=== PATIENT | female | born 1995 | race Caucasian/White ===

== ENCOUNTER 2025-07-23 13:28 | Observation (INO) | payer OTHER ==
[2025-07-23] MEDS ORDERED: VALIUM 10 MG/2 ML SYRINGE ONE (13:40)
--- NOTE | 2025-07-23 13:40 | ERPHSYRPT ---
- History of Present Illness Time Seen by Provider: 07/23/25 13:40 Source: patient, EMS Exam Limitations: clinical condition Physician History: This is a 30-year-old female who presents to the emergency department by the energy scheduler service secondary to possible seizure activity and complaint of generalized body muscle spasms with right arm being drawn up. This has never happened to her before. Patient lives in [place] and has been living in this area in [place] area with family for the last week. He has been visiting. She has been taking all her medications. Patient states that she did not hit her head. No other individuals have similar symptoms than her. She has no history of sickle cell anemia. She has no known cardiac history. She does have a history of seizures and is on diazepam for this. Patient does state that she has history of asthma as well as hypertension. Patient also states she has severe anxiety issues. Patient denies any recent condition, episode or experience that would have brought on her severe anxiety. Patient states she cannot extend her right elbow. This is new. Timing/Duration: today Severity: moderate Character of Deficits: other (Generalized muscle spasms) Baseline/Normal Cognition: alert oriented x 3 Current Cognition: alert oriented x 3 Associated Symptoms: headache (She describes as a generalized numbness) Allergies/Adverse Reactions: Latex, Natural Rubber Allergy (Verified 07/23/25 13:36) Sulfa (Sulfonamide Antibiotics) Allergy (Verified 07/23/25 13:36) Home Medications: Budesonide/Formoterol Fumarate [Budesonide-Formoterol 160-4.5] 2 puff IH DAILY 07/23/25 [History] Diazepam [Valium] 2 mg PO DAILY PRN 07/23/25 [History] Fluoxetine HCl 60 mg PO DAILY 07/23/25 [History] Losartan Potassium 50 mg [Cozaar 50 MG] 100 mg PO DAILY 07/23/25 [History] PANTOPRAZOLE 40 mg Tablet [Protonix 40MG Tablet] 40 mg PO DAILY 07/23/25 [History] Travel Risk - International Travel Have you traveled outside of the country in past 3 weeks: No - Emerging Infectious Disease Are you exhibiting symptoms associated with any current EIDs: No - Review of Systems Constitutional: No Symptoms Eyes: No Symptoms Ears, Nose, & Throat: No Symptoms Respiratory: No Symptoms Cardiac: No Symptoms Abdominal/Gastrointestinal: No Symptoms Genitourinary Symptoms: No Symptoms Musculoskeletal: Other (Right upper extremity flexed at the elbow. Patient has generalized muscle spasms) Skin: No Symptoms Neurological: Headache (Describes as generalized numbness) Psychological: No Symptoms Endocrine: No Symptoms Hematologic/Lymphatic: No Symptoms Immunological/Allergic: No Symptoms All Other Systems: Reviewed and Negative - Past Medical History Pertinent Past Medical History: Yes Neurological History: Seizures Cardiac History: Hypertension Psycho-Social History: Anxiety - Past Surgical History Past Surgical History: Yes Female Surgical History: Section - Female History Hx Now: No - Nursing Vital Signs Nursing Vital Signs: Initial Vital Signs O2 Sat by Pulse Oximetry 96 07/23/25 13:37 Pain Scale Pain Intensity 4 - Rodeo Coma Scale Best Eye Response (Apple): (4) open spontaneously Best Verbal Response (Rodeo): (5) oriented Best Motor Response (Apple): (6) obeys commands Apple Total: 15 - Physical Exam General Appearance: moderate distress, alert, anxiety Eye Exam: bilateral eye: normal inspection, PERRL, EOMI Ears, Nose, Throat Exam: normal ENT inspection, moist mucous membranes Neck Exam: normal inspection, non-tender, supple, full range of motion Respiratory: normal breath sounds, lungs clear, airway intact, No chest tenderness, No respiratory distress Cardiovascular: regular rate/rhythm, normal heart sounds, normal peripheral pulses Gastrointestinal: soft, normal bowel sounds, No tenderness Pelvic Exam: not done Rectal Exam: not done Back Exam: normal inspection, normal range of motion, No CVA tenderness, No vertebral tenderness Extremity Exam: pelvis stable, other (Patient has generalized muscular spasms. She is unable to extend her right elbow) Mental Status: alert, oriented x 3, cooperative outpatient case manager Exam: normal hearing, normal speech, PERRL, tongue midline, No facial droop, No facial paresthesias Skin Exam: normal color, warm, dry SpO2 Interpretation: normal SpO2: 98 O2 Delivery: Room Air - Course Nursing assessment & vital signs reviewed: Yes EKG Interpreted by Me: RATE (93), A-fib, NORMAL AXIS, prolonged QT interval, NORMAL QRS, Other Ordered Tests: Active Orders 24 hr Category Date Time Status Personalization Specialist STAT Care 07/23/25 13:38 Active EKG-ER Only STAT Care 07/23/25 13:37 Active EKG-ER Only STAT Care 07/23/25 17:24 Active IV Insertion STAT Care 07/23/25 13:37 Active NPO (ED) STAT Care 07/23/25 13:37 Active Pulse Oximetry (ED) STAT Care 07/23/25 13:37 Active Telemetry q4h Care 07/23/25 19:00 Active HEAD WITHOUT CONTRAST [CT] Stat Exams 07/23/25 13:37 Completed BMP Stat Lab 07/23/25 17:25 Completed CBC W DIFF Stat Lab 07/23/25 13:43 Completed CK-Creatinine Phosphokinase Stat Lab 07/23/25 14:20 Completed CMP Stat Lab 07/23/25 13:43 Completed CULTURE,URINE Stat Lab 07/23/25 13:37 Received MAG [MAGNESIUM] Stat Lab 07/23/25 14:20 Completed MAG [MAGNESIUM] Stat Lab 07/23/25 17:25 Completed PHOSPHOROUS Stat Lab 07/23/25 17:25 Completed TROPONIN Q4H Lab 07/23/25 13:43 Completed TROPONIN Q4H Lab 07/23/25 17:25 Completed UA W/RFX UR CULTURE Stat Lab 07/23/25 13:37 Completed Urine Triage Profile Stat Lab 07/23/25 13:58 Completed Medication Summary Generic Name Dose Route Start Last Admin Trade Name Freq PRN Reason Stop Dose Admin Potassium Chloride 20 meq in 100 mls @ 50 mls/hr 07/23/25 19:00 07/23/25 19:33 Potassium Chloride 20 Meq In Water 100ml IV 07/23/25 20:59 50 mls/hr STAT ONE Administration Sodium Chloride 1,000 mls @ 500 mls/hr 07/23/25 19:30 07/23/25 19:33 Sodium Chloride 0.9% 1000 Ml IV 08/22/25 19:29 500 mls/hr .Q2H YUNG Administration Discontinued Medications Generic Name Dose Route Start Last Admin Trade Name Freq PRN Reason Stop Dose Admin Calcium Gluconate 1,000 mg 07/23/25 17:27 07/23/25 17:35 Calcium Gluconate 1000 Mg/10 Ml Vial IV 07/23/25 17:28 1,000 mg STAT ONE Administration Calcium Gluconate Confirm 07/23/25 17:34 Calcium Gluconate 1000 Mg/10 Ml Vial Administered 07/23/25 17:35 Dose 1,000 mg IV .STK-MED ONE Diazepam 10 mg 07/23/25 13:39 07/23/25 13:41 Diazepam 10 Mg/2 Ml Disp.Syringe IV 07/23/25 13:40 10 mg STAT ONE Administration Diazepam Confirm 07/23/25 13:40 Diazepam 10 Mg/2 Ml Disp.Syringe Administered 07/23/25 13:41 Dose 10 mg .ROUTE .STK-MED ONE Droperidol 0.625 mg 07/23/25 15:57 07/23/25 16:21 Droperidol 5 Mg/2 Ml Vial IV 07/23/25 15:58 0.625 mg STAT ONE Administration Droperidol Confirm 07/23/25 16:15 Droperidol 5 Mg/2 Ml Vial Administered 07/23/25 16:16 Dose 5 mg .ROUTE .STK-MED ONE Sodium Chloride 1,000 mls @ 999 mls/hr 07/23/25 14:44 07/23/25 16:25 Sodium Chloride 0.9% 1000 Ml IV 07/23/25 15:44 Infused .Q1H1M STA Infusion Magnesium Sulfate/Water 2 gm in 50 mls @ 100 mls/hr 07/23/25 14:44 07/23/25 16:58 Magnesium Sulf 2 G/50 Ml Bag IV 07/23/25 15:13 Infused ONCE ONE Infusion Magnesium Sulfate/Water Confirm 07/23/25 14:46 Magnesium Sulf 2 G/50 Ml Bag Administered 07/23/25 14:47 Dose 2 gm in 50 mls @ ud IV .STK-MED ONE Sodium Chloride Confirm 07/23/25 14:46 Sodium Chloride 0.9% 1000 Ml Administered 07/23/25 14:47 Dose 1,000 mls @ ud .ROUTE .STK-MED ONE Magnesium Sulfate/Dextrose 100 mls @ 200 mls/hr 07/23/25 15:43 07/23/25 16:27 Magnesium 1 Gm / 100 Ml D5w IV 07/23/25 16:12 Infused STAT ONE Infusion Magnesium Sulfate/Dextrose Confirm 07/23/25 15:51 Magnesium 1 Gm / 100 Ml D5w Administered 07/23/25 15:52 Dose 100 mls @ ud IV .STK-MED ONE Sodium Chloride Confirm 07/23/25 16:09 Sodium Chloride 0.9% 500 Ml Administered 07/23/25 16:10 Dose 500 mls @ ud IV .STK-MED ONE Sodium Chloride 500 mls @ 500 mls/hr 07/23/25 17:03 07/23/25 18:07 Sodium Chloride 0.9% 500 Ml IV 07/23/25 18:02 Infused .Q1H ONE Infusion Sodium Chloride Confirm 07/23/25 17:07 Sodium Chloride 0.9% 500 Ml Administered 07/23/25 17:08 Dose 500 mls @ ud IV .STK-MED ONE Potassium Chloride Confirm 07/23/25 19:23 Potassium Chloride 20 Meq In Water 100ml Administered 07/23/25 19:24 Dose 100 mls @ ud IV .STK-MED ONE Lorazepam 1 mg 07/23/25 15:57 07/23/25 16:20 Lorazepam 2 Mg/1 Ml 2 Mg Vial IV 07/23/25 15:58 1 mg STAT ONE Administration Morphine Sulfate 4 mg 07/23/25 13:49 07/23/25 13:54 Morphine Sulfate 4 Mg/Ml Injection IV 07/23/25 13:50 4 mg STAT ONE Administration Morphine Sulfate Confirm 07/23/25 13:52 Morphine Sulfate 4 Mg/Ml Injection Administered 07/23/25 13:53 Dose 4 mg .ROUTE .STK-MED ONE Ondansetron HCl 4 mg 07/23/25 13:49 07/23/25 13:54 Ondansetron Hcl 4 Mg/2 Ml Vial IV 07/23/25 13:50 4 mg STAT ONE Administration Ondansetron HCl Confirm 07/23/25 13:52 Ondansetron Hcl 4 Mg/2 Ml Vial Administered 07/23/25 13:53 Dose 4 mg .ROUTE .STK-MED ONE Potassium Chloride 20 meq 07/23/25 17:28 07/23/25 17:35 Potassium Chloride Tab 10 Meq Tab PO 07/23/25 17:29 20 meq STAT ONE Administration Potassium Chloride Confirm 07/23/25 17:34 Potassium Chloride Tab 10 Meq Tab Administered 07/23/25 17:35 Dose 20 meq .ROUTE .STK-MED ONE Lab/Rad Data: Laboratory Result Diagrams 07/23/25 13:43 07/23/25 17:25 Laboratory Results 07/23/25 07/23/25 07/23/25 Range/Units 17:25 17:25 17:25 WBC (3.98-10.04) x10^3/uL RBC (3.93-5.22) x10^6/uL Hgb (11.2-15.7) g/dL Hct (34.1-44.9) % MCV (79.4-94.8) fL MCH (25.6-32.2) pg MCHC (32.2-35.5) g/dL RDW (11.7-14.4) % Plt Count (182-369) x10^3/uL MPV (9.4-12.3) fL Gran % (34.0-71.1) % Immature Gran % (Auto) (0.001-0.429) % Nucleat RBC Rel Count (0.00-0.2) % Eos # (Auto) (0.04-0.36) x10^3/uL Immature Gran # (Auto) (0.001-0.031) x10^3u/L Absolute Lymphs (auto) (1.18-3.74) x10^3/uL Absolute Monos (auto) (0.24-0.86) x10^3/uL Absolute Nucleated RBC (0.00-0.012) x10^3u/L Lymphocytes % (19.3-51.7) % Monocytes % (4.7-12.5) % Eosinophils % (0.7-5.8) % Basophils % (0.1-1.2) % Absolute Granulocytes (1.56-6.13) x10^3/uL Basophils # (0.01-0.08) x10^3/uL Sodium 139 (135-145) mmol/L Potassium 3.0 L* (3.5-5.1) mmol/L Chloride 105 (98-107) mmol/L Carbon Dioxide 28 (22-30) mmol/L Anion Gap 9.3 (5-15) MEQ/L BUN 8 (7-17) mg/dL Creatinine 0.64 (0.52-1.04) mg/dL Estimated GFR 121.9 ML/MIN Glucose 81 (74-106) mg/dL Calcium 7.5 L (8.4-10.2) mg/dL Phosphorus 3.5 (2.5-4.5) mg/dL Magnesium 2.0 (1.6-2.3) mg/dL Total Bilirubin (0.2-1.3) mg/dL AST (14-36) U/L ALT (0-35) U/L Alkaline Phosphatase (38-126) U/L Creatine Kinase (30-135) U/L Troponin I < 0.012 (0.000-0.033) ng/mL Serum Total Protein (6.3-8.2) g/dL Albumin (3.5-5.0) g/dL Urine Color (Yellow) Urine Appearance (Clear) Urine pH (4.6-8.0) Ur Specific Marshall (1.005-1.030) Urine Protein (Negative) Urine Glucose (UA) (Negative) mg/dL Urine Ketones (Negative) Urine Blood (Negative) Urine Nitrite (Negative) Urine Bilirubin (Negative) Urine Urobilinogen (0.2) mg/dL Ur Leukocyte Esterase (Negative) U Hyaline Cast (Auto) (0-2) /LPF Urine Microscopic RBC (0-5) /HPF Urine Microscopic WBC (0-5) /HPF Ur Epithelial Cells (None Seen) /HPF Urine Bacteria (None Seen) /HPF Urine Culture Reflexed (NO) Urine Opiates Level (NEGATIVE) Ur Methadone (NEGATIVE) Urine Barbiturates (NEGATIVE) Ur Phencyclidine (PCP) (NEGATIVE) Urine Amphetamine (NEGATIVE) U Benzodiazepine Level (NEGATIVE) Urine Cocaine (NEGATIVE) Urine Marijuana (THC) (NEGATIVE) 07/23/25 07/23/25 07/23/25 Range/Units 14:20 14:20 13:58 WBC (3.98-10.04) x10^3/uL RBC (3.93-5.22) x10^6/uL Hgb (11.2-15.7) g/dL Hct (34.1-44.9) % MCV (79.4-94.8) fL MCH (25.6-32.2) pg MCHC (32.2-35.5) g/dL RDW (11.7-14.4) % Plt Count (182-369) x10^3/uL MPV (9.4-12.3) fL Gran % (34.0-71.1) % Immature Gran % (Auto) (0.001-0.429) % Nucleat RBC Rel Count (0.00-0.2) % Eos # (Auto) (0.04-0.36) x10^3/uL Immature Gran # (Auto) (0.001-0.031) x10^3u/L Absolute Lymphs (auto) (1.18-3.74) x10^3/uL Absolute Monos (auto) (0.24-0.86) x10^3/uL Absolute Nucleated RBC (0.00-0.012) x10^3u/L Lymphocytes % (19.3-51.7) % Monocytes % (4.7-12.5) % Eosinophils % (0.7-5.8) % Basophils % (0.1-1.2) % Absolute Granulocytes (1.56-6.13) x10^3/uL Basophils # (0.01-0.08) x10^3/uL Sodium (135-145) mmol/L Potassium (3.5-5.1) mmol/L Chloride (98-107) mmol/L Carbon Dioxide (22-30) mmol/L Anion Gap (5-15) MEQ/L BUN (7-17) mg/dL Creatinine (0.52-1.04) mg/dL Estimated GFR ML/MIN Glucose (74-106) mg/dL Calcium (8.4-10.2) mg/dL Phosphorus (2.5-4.5) mg/dL Magnesium 0.8 L* (1.6-2.3) mg/dL Total Bilirubin (0.2-1.3) mg/dL AST (14-36) U/L ALT (0-35) U/L Alkaline Phosphatase (38-126) U/L Creatine Kinase 108 (30-135) U/L Troponin I (0.000-0.033) ng/mL Serum Total Protein (6.3-8.2) g/dL Albumin (3.5-5.0) g/dL Urine Color (Yellow) Urine Appearance (Clear) Urine pH (4.6-8.0) Ur Specific Marshall (1.005-1.030) Urine Protein (Negative) Urine Glucose (UA) (Negative) mg/dL Urine Ketones (Negative) Urine Blood (Negative) Urine Nitrite (Negative) Urine Bilirubin (Negative) Urine Urobilinogen (0.2) mg/dL Ur Leukocyte Esterase (Negative) U Hyaline Cast (Auto) (0-2) /LPF Urine Microscopic RBC (0-5) /HPF Urine Microscopic WBC (0-5) /HPF Ur Epithelial Cells (None Seen) /HPF Urine Bacteria (None Seen) /HPF Urine Culture Reflexed (NO) Urine Opiates Level POSITIVE A (NEGATIVE) Ur Methadone NEGATIVE (NEGATIVE) Urine Barbiturates NEGATIVE (NEGATIVE) Ur Phencyclidine (PCP) NEGATIVE (NEGATIVE) Urine Amphetamine NEGATIVE (NEGATIVE) U Benzodiazepine Level POSITIVE A (NEGATIVE) Urine Cocaine NEGATIVE (NEGATIVE) Urine Marijuana (THC) POSITIVE A (NEGATIVE) 07/23/25 07/23/25 07/23/25 Range/Units 13:43 13:43 13:43 WBC 6.8 (3.98-10.04) x10^3/uL RBC 3.22 L (3.93-5.22) x10^6/uL Hgb 11.0 L (11.2-15.7) g/dL Hct 32.7 L (34.1-44.9) % MCV 101.6 H (79.4-94.8) fL MCH 34.2 H (25.6-32.2) pg MCHC 33.6 (32.2-35.5) g/dL RDW 17.9 H (11.7-14.4) % Plt Count 247 (182-369) x10^3/uL MPV 9.2 L (9.4-12.3) fL Gran % 62.2 (34.0-71.1) % Immature Gran % (Auto) 0.4 (0.001-0.429) % Nucleat RBC Rel Count 0.0 (0.00-0.2) % Eos # (Auto) 0.01 L (0.04-0.36) x10^3/uL Immature Gran # (Auto) 0.03 (0.001-0.031) x10^3u/L Absolute Lymphs (auto) 1.64 (1.18-3.74) x10^3/uL Absolute Monos (auto) 0.84 (0.24-0.86) x10^3/uL Absolute Nucleated RBC 0.00 (0.00-0.012) x10^3u/L Lymphocytes % 24.2 (19.3-51.7) % Monocytes % 12.4 (4.7-12.5) % Eosinophils % 0.1 L (0.7-5.8) % Basophils % 0.7 (0.1-1.2) % Absolute Granulocytes 4.22 (1.56-6.13) x10^3/uL Basophils # 0.05 (0.01-0.08) x10^3/uL Sodium 138 (135-145) mmol/L Potassium 3.6 (3.5-5.1) mmol/L Chloride 104 (98-107) mmol/L Carbon Dioxide 23 (22-30) mmol/L Anion Gap 14.2 (5-15) MEQ/L BUN 9 (7-17) mg/dL Creatinine 0.62 (0.52-1.04) mg/dL Estimated GFR 122.8 ML/MIN Glucose 90 (74-106) mg/dL Calcium 7.7 L (8.4-10.2) mg/dL Phosphorus (2.5-4.5) mg/dL Magnesium (1.6-2.3) mg/dL Total Bilirubin 1.30 (0.2-1.3) mg/dL AST 101 H (14-36) U/L ALT 33 (0-35) U/L Alkaline Phosphatase 73 (38-126) U/L Creatine Kinase (30-135) U/L Troponin I < 0.012 (0.000-0.033) ng/mL Serum Total Protein 6.8 (6.3-8.2) g/dL Albumin 4.0 (3.5-5.0) g/dL Urine Color (Yellow) Urine Appearance (Clear) Urine pH (4.6-8.0) Ur Specific Marshall (1.005-1.030) Urine Protein (Negative) Urine Glucose (UA) (Negative) mg/dL Urine Ketones (Negative) Urine Blood (Negative) Urine Nitrite (Negative) Urine Bilirubin (Negative) Urine Urobilinogen (0.2) mg/dL Ur Leukocyte Esterase (Negative) U Hyaline Cast (Auto) (0-2) /LPF Urine Microscopic RBC (0-5) /HPF Urine Microscopic WBC (0-5) /HPF Ur Epithelial Cells (None Seen) /HPF Urine Bacteria (None Seen) /HPF Urine Culture Reflexed (NO) Urine Opiates Level (NEGATIVE) Ur Methadone (NEGATIVE) Urine Barbiturates (NEGATIVE) Ur Phencyclidine (PCP) (NEGATIVE) Urine Amphetamine (NEGATIVE) U Benzodiazepine Level (NEGATIVE) Urine Cocaine (NEGATIVE) Urine Marijuana (THC) (NEGATIVE) 07/23/25 Range/Units 13:37 WBC (3.98-10.04) x10^3/uL RBC (3.93-5.22) x10^6/uL Hgb (11.2-15.7) g/dL Hct (34.1-44.9) % MCV (79.4-94.8) fL MCH (25.6-32.2) pg MCHC (32.2-35.5) g/dL RDW (11.7-14.4) % Plt Count (182-369) x10^3/uL MPV (9.4-12.3) fL Gran % (34.0-71.1) % Immature Gran % (Auto) (0.001-0.429) % Nucleat RBC Rel Count (0.00-0.2) % Eos # (Auto) (0.04-0.36) x10^3/uL Immature Gran # (Auto) (0.001-0.031) x10^3u/L Absolute Lymphs (auto) (1.18-3.74) x10^3/uL Absolute Monos (auto) (0.24-0.86) x10^3/uL Absolute Nucleated RBC (0.00-0.012) x10^3u/L Lymphocytes % (19.3-51.7) % Monocytes % (4.7-12.5) % Eosinophils % (0.7-5.8) % Basophils % (0.1-1.2) % Absolute Granulocytes (1.56-6.13) x10^3/uL Basophils # (0.01-0.08) x10^3/uL Sodium (135-145) mmol/L Potassium (3.5-5.1) mmol/L Chloride (98-107) mmol/L Carbon Dioxide (22-30) mmol/L Anion Gap (5-15) MEQ/L BUN (7-17) mg/dL Creatinine (0.52-1.04) mg/dL Estimated GFR ML/MIN Glucose (74-106) mg/dL Calcium (8.4-10.2) mg/dL Phosphorus (2.5-4.5) mg/dL Magnesium (1.6-2.3) mg/dL Total Bilirubin (0.2-1.3) mg/dL AST (14-36) U/L ALT (0-35) U/L Alkaline Phosphatase (38-126) U/L Creatine Kinase (30-135) U/L Troponin I (0.000-0.033) ng/mL Serum Total Protein (6.3-8.2) g/dL Albumin (3.5-5.0) g/dL Urine Color Yellow (Yellow) Urine Appearance Clear (Clear) Urine pH 7.5 (4.6-8.0) Ur Specific Marshall 1.015 (1.005-1.030) Urine Protein Negative (Negative) Urine Glucose (UA) Negative (Negative) mg/dL Urine Ketones Trace A (Negative) Urine Blood Negative (Negative) Urine Nitrite Negative (Negative) Urine Bilirubin Negative (Negative) Urine Urobilinogen 1.0 A (0.2) mg/dL Ur Leukocyte Esterase Negative (Negative) U Hyaline Cast (Auto) NONE SEEN (0-2) /LPF Urine Microscopic RBC 0-2 (0-5) /HPF Urine Microscopic WBC 0-2 (0-5) /HPF Ur Epithelial Cells None Seen (None Seen) /HPF Urine Bacteria None Seen (None Seen) /HPF Urine Culture Reflexed NO (NO) Urine Opiates Level (NEGATIVE) Ur Methadone (NEGATIVE) Urine Barbiturates (NEGATIVE) Ur Phencyclidine (PCP) (NEGATIVE) Urine Amphetamine (NEGATIVE) U Benzodiazepine Level (NEGATIVE) Urine Cocaine (NEGATIVE) Urine Marijuana (THC) (NEGATIVE) - Progress Progress: improved, re-examined Progress Note: 07/23/25 13:57 My medical decision making and the assignment of moderate to high complexity of this patient's medical issue today is based on review of the patient's past medical history, review the patient's medication list, review the patient drug allergy list, history of present illness and physical findings on examination. The workup in this patient includes placement of intravenous line, infusion of 10 mg intravenous Valium, 4 mg intravenous morphine, 4 mg of intravenous Zofran, CBC, CMP, magnesium level, twelve-lead EKG, urine drug screen, urinalysis and CT scan of the head without contrast Differential diagnosis includes but is not limited to acute intracranial abnormality, severe anxiety/panic attack, electrolyte abnormalities, dehydration, urinary tract infection, illicit drug use 07/23/25 14:[address] scan of the head without contrast was interpreted by the radiologist. I reviewed the impression. The impression states normal CT scan of the head without contrast. The patient has a significantly low magnesium level. Otherwise, the remainder of the other labs that have resulted do not show any acute, emergent findings. We are waiting to obtain the urine specimen in order to run a urinalysis and urine drug triage. We started intravenous fluids and intravenous magnesium. Soon after, she states that her symptoms are improving. 07/23/25 18:49 We repeated the patient's laboratory data results. Patient's 2 troponin levels are normal. Patient's repeat potassium level was 3.0 (down from 3.6), the repeat magnesium level is now 2.0. The calcium level was 7.7 and the repeat level was 7.5. They phosphorus level is 3.5 and normal. The first twelve-lead EKG the computer read the QTc is 503 and the pattern was atrial fibrillation. However I think the findings are artifact because the patient was shaking so much. The second (repeat) twelve-lead EKG I interpreted as well. It was performed on 07/23/2025 at 1729. There is persistent prolonged QT interval with a QTc reported by the computer on the EKG is 628. This was puzzling. I consulted Dr. Faustin the manager summer on-call at this time. The patient has no chest pain. And I reviewed the patient history, presenting complaint and the results of the laboratory workup. The manager summer states that the QT interval is less than 500. He says it is slightly prolonged on both twelve-lead EKGs but 1 measured 482 and the other 486. He states that there is a U wave present on the repeat twelve-lead EKG artificially increasing the QTc. This is secondary to the electrolyte abnormalities the patient is experiencing. We agree that we will place this patient in the hospital in observation on telemetry and have the hospitalist correct the electrolytes. Clinically, the patient states she is feeling much better. 07/23/25 20:[address] Pham, the telehospitalist on at this time. I reviewed the patient history, presenting complaint and workup results. In addition I discussed with him the clinical response to our intervention. We will place this patient in the hospital setting under observation status on telemetry. Counseled pt/family regarding: lab results, diagnosis, rad results Medical Desision Making - Diagnostic Testing Diagnostic test were ordered, analyzed, and reviewed by me: Yes Radiological Interpretation: Reviewed by me, Teleradiologist Report - Risk of complications The pt has a high risk of morbidity or mortality based on: Decision regarding hospitilization or escalation of hosp level of care - Departure Departure Disposition: Observation Clinical Impression: Muscle spasm, Hypokalemia, Hypomagnesemia, Hypocalcemia Condition: Fair Critical Care Time: Yes Critical Care Time(excluding separately billable procedures): Critical 30-74 mins (65) Referrals: DOCTOR,NO FAMILY [Primary Care Provider, UNKNOWN] - Follow up/PCP as directed
[2025-07-23] MEDS: VALIUM 10 MG/2 ML SYRINGE IV ONE (13:41)
[2025-07-23 13:45] LABS: BASOPHIL % 0.7 % (0.1-1.2); Basophil (Absolute #) 0.05 x10^3/uL (0.01-0.08); Eosinophil (Absolute #) 0.01 x10^3/uL (0.04-0.36); Hematocrit 32.7 % (34.1-44.9); Hemoglobin 11.0 g/dL (11.2-15.7); IMMATURE GRAN # 0.03 x10^3u/L (0.001-0.031); IMMATURE GRAN % 0.4 % (0.001-0.429); Lymphocyte (Absolute #) 1.64 x10^3/uL (1.18-3.74); Mean Corpuscular Hemoglobin 34.2 pg (25.6-32.2); Mean Corpuscular Hgb Concent. 33.6 g/dL (32.2-35.5); Monocyte (Absolute #) 0.84 x10^3/uL (0.24-0.86); NUCLEATED RBC # 0.00 x10^3u/L (0.00-0.012); NUCLEATED RBC % 0.0 % (0.00-0.2); Platelet Count 247 x10^3/uL (182-369); Red Blood Count 3.22 x10^6/uL (3.93-5.22); White Blood Count 6.8 x10^3/uL (3.98-10.04)
[2025-07-23] MEDS ORDERED: Zofran 4 MG/2 ML VIAL ONE (13:52)
[2025-07-23] MEDS ORDERED: MORPHINE SULFATE 4 MG INJ ONE ×2 (13:52→20:25)
[2025-07-23] MEDS: Zofran 4 MG/2 ML VIAL IV ONE (13:54)
[2025-07-23] MEDS: MORPHINE SULFATE 4 MG INJ IV ONE ×2 (13:54→20:26)
[2025-07-23 13:57] LABS: Calcium 7.7 mg/dL (8.4-10.2); Carbon Dioxide 23.0 mmol/L (22-30); Creatinine 1 0.62 mg/dL (0.52-1.04); EST GLOMERULAR FILTRATION RATE 122.8 ML/MIN; Glucose 90.0 mg/dL (74-106); Potassium 3.6 mmol/L (3.5-5.1); SGOT/AST 101.0 U/L (14-36); SGPT/ALT 33.0 U/L (0-35); Total Protein 6.8 g/dL (6.3-8.2)
--- NOTE | 2025-07-23 14:45 | XRAY ---
Indication: Questionable CVA versus seizure. Multiple contiguous axial images obtained through the head without contrast. Comparison: None Normal appearing brain parenchyma, ventricles, and bony calvarium. Visualized paranasal sinuses and mastoid air cells are clear. Impression: Normal CT head without contrast exam.
[2025-07-23] MEDS ORDERED: MAGNESIUM SULF 2 G/50 ML BAG 2 GM/50 ML PIGGYBACK IV ONE (14:46)
[2025-07-23] MEDS: MAGNESIUM SULF 2 G/50 ML BAG 2 GM/50 ML PIGGYBACK IV ONE (14:48)
[2025-07-23] MEDS ORDERED: Magnesium 1 Gm / 100 Ml D5W*** 100 ML IV ONE (15:51)
[2025-07-23] MEDS: Magnesium 1 Gm / 100 Ml D5W*** 100 ML IV ONE (15:52)
[2025-07-23] MEDS ORDERED: Inapsine 5 MG/2 ML ONE (16:15)
[2025-07-23] MEDS: Ativan 2 MG/1 ML VIAL IV ONE (16:20)
[2025-07-23] MEDS: Inapsine 5 MG/2 ML IV ONE (16:21)
[2025-07-23] MEDS ORDERED: Klor Con ONE (17:34)
[2025-07-23] MEDS ORDERED: Calcium Gluconate 10% 1000 MG IV ONE (17:34)
[2025-07-23] MEDS: Calcium Gluconate 10% 1000 MG IV ONE (17:35)
[2025-07-23] MEDS: Klor Con PO ONE (17:35)
[2025-07-23 17:44] LABS: Calcium 7.5 mg/dL (8.4-10.2); Carbon Dioxide 28.0 mmol/L (22-30); Creatinine 1 0.64 mg/dL (0.52-1.04); EST GLOMERULAR FILTRATION RATE 121.9 ML/MIN; Glucose 81.0 mg/dL (74-106)
[2025-07-23 17:45] LABS: Glucose, Urine Negative (Negative); Protein,Urine Dip Negative (Negative); RBC 0-2 /HPF (0-5); WBC 0-2 /HPF (0-5)
[2025-07-23 17:51] LABS: Potassium 3.0 mmol/L (3.5-5.1)
[2025-07-23 17:57] LABS: Amphetamine,Urine NEGATIVE (NEGATIVE); Barbiturate,Urine NEGATIVE (NEGATIVE); Benzodiazepine,Urine POSITIVE (NEGATIVE); Cocaine,Urine NEGATIVE (NEGATIVE); Methadone,Urine NEGATIVE (NEGATIVE); Opiate,Urine POSITIVE (NEGATIVE); PCP,Urine NEGATIVE (NEGATIVE); THC,Urine POSITIVE (NEGATIVE)
[2025-07-23] MEDS ORDERED: POTASSIUM CHLORIDE 20 mEq IN WATER 100ML 100 ML IV ONE (19:23)
[2025-07-23] MEDS: POTASSIUM CHLORIDE 20 mEq IN WATER 100ML 20 MEQ/100 ML BAG IV ONE (19:33)
[2025-07-23] MEDS: VALIUM 10 MG/2 ML SYRINGE IV SCH (23:11)
[2025-07-24] MEDS: TYLENOL 325 MG PO PRN (02:45)
[2025-07-24] MEDS: MOTRIN 400 MG PO ONE (05:30)
[2025-07-24] MEDS ORDERED: MOTRIN 400 MG ONE (05:32)
[2025-07-24 06:08] LABS: Calcium 7.4 mg/dL (8.4-10.2); Carbon Dioxide 26.0 mmol/L (22-30); Creatinine 1 0.64 mg/dL (0.52-1.04); EST GLOMERULAR FILTRATION RATE 121.9 ML/MIN; Glucose 86.0 mg/dL (74-106); NT PRO BNPII 1020.0 pg/mL (<300); Potassium 3.3 mmol/L (3.5-5.1); SGOT/AST 69.0 U/L (14-36); SGPT/ALT 26.0 U/L (0-35); Total Protein 6.0 g/dL (6.3-8.2)
[2025-07-24 06:26] LABS: Hematocrit 30.7 % (34.1-44.9); Hemoglobin 10.3 g/dL (11.2-15.7); Mean Corpuscular Hemoglobin 34.9 pg (25.6-32.2); Mean Corpuscular Hgb Concent. 33.6 g/dL (32.2-35.5); Platelet Count 220 x10^3/uL (182-369); Red Blood Count 2.95 x10^6/uL (3.93-5.22); White Blood Count 4.7 x10^3/uL (3.98-10.04)
[2025-07-24 06:28] LABS: Eosinophil (Absolute #) 0.08 x10^3/uL (0.04-0.36); Lymphocyte (Absolute #) 1.51 x10^3/uL (1.18-3.74); Monocyte (Absolute #) 0.56 x10^3/uL (0.24-0.86)
[2025-07-24 06:29] LABS: IMMATURE GRAN # 0.01 x10^3u/L (0.001-0.031)
[2025-07-24] MEDS ORDERED: MOTRIN 400 MG PO ONE (07:19)
[2025-07-24] MEDS ORDERED: NON-FORMULARY ITEM (Diazepam [Valium] 2 MG Tablet) PO PRN (07:30)
[2025-07-24] MEDS ORDERED: Valium 5 MG PO PRN (07:36)
[2025-07-24] MEDS: Cozaar 50 MG PO SCH (07:38)
[2025-07-24] MEDS: MAGNESIUM SULF 2 G/50 ML BAG 2 GM/50 ML PIGGYBACK IV ONE (07:39)
[2025-07-24] MEDS: Klor Con PO SCH (07:48)
[2025-07-24] MEDS: Lopressor 50 MG PO SCH (08:21)
--- NOTE | 2025-07-24 08:59 | PCM.NOTE ---
Date and Time: 07/24/25 0858 Subjective Assessment: Ms. Solares is a 30-year-old woman with past medical history of hypertension, asthma, seizure disorder, and anxiety who presented to the emergency department via EMS for evaluation of new-onset generalized muscle spasms and cramping, with right arm posturing and inability to extend the right elbow. She denied loss of consciousness, head trauma, or prior similar episodes. She reported adherence to her home medications, which include losartan, metoprolol, budesonide-formoterol, duloxetine, and diazepam. She is currently visiting family and staying in a park area in [place]. On exam, she was alert, oriented, and hemodynamically stable without acute distress. Neurologic exam was nonfocal aside from limited right elbow extension. Musculoskeletal exam revealed no deformities. Laboratory workup revealed hypokalemia (K 3.0), severe hypomagnesemia (Mg 0.8), mild anemia (Hgb 11), and a normal WBC. Urinalysis showed trace ketones. Urine toxicology was positive for opioids, benzodiazepines, and marijuana. EKG demonstrated normal sinus rhythm without QT prolongation. The patients bilateral leg spasms improved after IV magnesium repletion. 07/24/25: Patient was seen at bedside this morning. She reports persistent diffuse body aches, though notes some improvement since admission. She is tearful during the encounter and is requesting narcotic pain medication. Blood pressure is elevated today most likely secondary to stress reaction- morning meds given early. Discussed with the patient that concurrent use of diazepam and narcotics is contraindicated, and alternative analgesia with Toradol will be continued. She has been informed that her potassium, magnesium, and calcium levels remain low this morning and will be replenished. Denies fever,cough, sob, cp, abdominal pain, SHAH, dizziness, N/V/D. - Review of Systems Constitutional: Fatigue Eyes: No Symptoms Ears, Nose, & Throat: No Symptoms Respiratory: No Symptoms Cardiac: No Symptoms Abdominal/Gastrointestinal: Nausea Genitourinary Symptoms: No Symptoms Musculoskeletal: Other (body aches) Neurological: No Symptoms Psychological: Anxiety, Depression Endocrine: No Symptoms Hematologic/Lymphatic: No Symptoms Immunological/Allergic: No Symptoms Objective Exam General Appearance: no apparent distress Neurologic Exam: alert, oriented x 3, cooperative, other (tearful) Skin Exam: normal color Eye Exam: PERRL Ears, Nose, Throat Exam: normal ENT inspection Neck Exam: normal inspection Respiratory Exam: normal breath sounds, lungs clear Cardiovascular Exam: regular rate/rhythm, normal heart sounds Gastrointestinal/Abdomen Exam: soft, normal bowel sounds Extremity Exam: normal inspection Back Exam: normal inspection Pelvic Exam: deferred Rectal Exam: deferred Objective Data Vital Signs: Vital Signs - 24 hr Temp Pulse Resp BP BP Pulse Ox 07/24/25 00:19 97.1 F 67 16 167/103 100 07/23/25 23:35 67 16 167/103 07/23/25 21:20 100 07/23/25 21:00 80 18 124/78 97 07/23/25 20:50 69 16 129/77 07/23/25 20:40 67 19 135/85 07/23/25 20:30 67 18 143/105 07/23/25 20:20 97 H 19 137/87 07/23/25 20:16 98 07/23/25 20:10 70 18 139/87 07/23/25 20:00 70 14 129/86 98 07/23/25 19:50 73 20 139/105 07/23/25 19:40 77 21 146/105 07/23/25 19:30 78 12 123/75 07/23/25 19:20 60 18 151/76 07/23/25 19:11 78 16 151/103 07/23/25 19:00 62 20 125/79 07/23/25 18:50 58 L 20 123/78 07/23/25 18:40 62 19 131/78 07/23/25 18:30 56 L 17 131/85 07/23/25 18:20 64 14 128/76 07/23/25 18:10 56 L 21 144/96 07/23/25 18:00 62 17 149/99 98 07/23/25 17:50 58 L 17 144/102 07/23/25 17:40 63 17 142/108 07/23/25 17:30 60 137/83 07/23/25 17:23 64 155/124 07/23/25 17:00 90 147/102 07/23/25 16:50 73 154/103 93 L 07/23/25 16:40 69 148/102 93 L 07/23/25 16:31 68 138/101 93 L 07/23/25 16:21 69 18 175/101 94 L 07/23/25 16:11 80 155/104 94 L 07/23/25 16:00 77 12 174/116 94 L 07/23/25 15:50 76 24 175/134 99 07/23/25 15:40 69 17 156/100 96 07/23/25 15:30 67 20 162/101 95 07/23/25 15:20 74 13 159/114 93 L 07/23/25 15:11 77 15 148/92 97 07/23/25 15:00 80 17 186/136 97 07/23/25 14:50 70 17 164/113 98 07/23/25 14:40 79 15 168/111 97 07/23/25 14:30 70 14 161/107 96 07/23/25 14:21 72 19 170/108 95 07/23/25 14:10 71 21 163/105 90 L 07/23/25 14:09 75 20 97 07/23/25 14:08 78 13 97 07/23/25 13:50 163/97 07/23/25 13:38 87 18 175/123 98 07/23/25 13:37 96 Pain Assessment - Last Documented Pain Intensity 8 Pain Scale Used 0-10 Pain Scale Intake and Output: Intake & Output 07/21/25 07/22/25 07/23/25 07/24/25 11:59 11:59 11:59 11:59 Intake Total 120 Balance 120 Weight 109.2 kg Lab Results: Lab Results-Last 24 Hours 07/23/25 07/23/25 07/23/25 Range/Units 13:37 13:43 13:43 WBC 6.8 (3.98-10.04) x10^3/uL RBC 3.22 L (3.93-5.22) x10^6/uL Hgb 11.0 L (11.2-15.7) g/dL Hct 32.7 L (34.1-44.9) % MCV 101.6 H (79.4-94.8) fL MCH 34.2 H (25.6-32.2) pg MCHC 33.6 (32.2-35.5) g/dL RDW 17.9 H (11.7-14.4) % Plt Count 247 (182-369) x10^3/uL MPV 9.2 L (9.4-12.3) fL Gran % 62.2 (34.0-71.1) % Immature Gran % (Auto) 0.4 (0.001-0.429) % Nucleat RBC Rel Count 0.0 (0.00-0.2) % Eos # (Auto) 0.01 L (0.04-0.36) x10^3/uL Immature Gran # (Auto) 0.03 (0.001-0.031) x10^3u/L Absolute Lymphs (auto) 1.64 (1.18-3.74) x10^3/uL Absolute Monos (auto) 0.84 (0.24-0.86) x10^3/uL Absolute Nucleated RBC 0.00 (0.00-0.012) x10^3u/L Lymphocytes % 24.2 (19.3-51.7) % Monocytes % 12.4 (4.7-12.5) % Eosinophils % 0.1 L (0.7-5.8) % Basophils % 0.7 (0.1-1.2) % Absolute Granulocytes 4.22 (1.56-6.13) x10^3/uL Basophils # 0.05 (0.01-0.08) x10^3/uL Sodium 138 (135-145) mmol/L Potassium 3.6 (3.5-5.1) mmol/L Chloride 104 (98-107) mmol/L Carbon Dioxide 23 (22-30) mmol/L Anion Gap 14.2 (5-15) MEQ/L BUN 9 (7-17) mg/dL Creatinine 0.62 (0.52-1.04) mg/dL Estimated GFR 122.8 ML/MIN Glucose 90 (74-106) mg/dL POC Glucometer (74 to 106) mg/dL Calcium 7.7 L (8.4-10.2) mg/dL Phosphorus (2.5-4.5) mg/dL Magnesium (1.6-2.3) mg/dL Total Bilirubin 1.30 (0.2-1.3) mg/dL AST 101 H (14-36) U/L ALT 33 (0-35) U/L Alkaline Phosphatase 73 (38-126) U/L Creatine Kinase (30-135) U/L Troponin I (0.000-0.033) ng/mL NT-Pro-B Natriuret Pep (<300) pg/mL Serum Total Protein 6.8 (6.3-8.2) g/dL Albumin 4.0 (3.5-5.0) g/dL Urine Color Yellow (Yellow) Urine Appearance Clear (Clear) Urine pH 7.5 (4.6-8.0) Ur Specific Mcdowell 1.015 (1.005-1.030) Urine Protein Negative (Negative) Urine Glucose (UA) Negative (Negative) mg/dL Urine Ketones Trace A (Negative) Urine Blood Negative (Negative) Urine Nitrite Negative (Negative) Urine Bilirubin Negative (Negative) Urine Urobilinogen 1.0 A (0.2) mg/dL Ur Leukocyte Esterase Negative (Negative) U Hyaline Cast (Auto) NONE SEEN (0-2) /LPF Urine Microscopic RBC 0-2 (0-5) /HPF Urine Microscopic WBC 0-2 (0-5) /HPF Ur Epithelial Cells None Seen (None Seen) /HPF Urine Bacteria None Seen (None Seen) /HPF Urine Culture Reflexed NO (NO) Urine Opiates Level (NEGATIVE) Ur Methadone (NEGATIVE) Urine Barbiturates (NEGATIVE) Ur Phencyclidine (PCP) (NEGATIVE) Urine Amphetamine (NEGATIVE) U Benzodiazepine Level (NEGATIVE) Urine Cocaine (NEGATIVE) Urine Marijuana (THC) (NEGATIVE) 07/23/25 07/23/25 07/23/25 Range/Units 13:43 13:58 14:20 WBC (3.98-10.04) x10^3/uL RBC (3.93-5.22) x10^6/uL Hgb (11.2-15.7) g/dL Hct (34.1-44.9) % MCV (79.4-94.8) fL MCH (25.6-32.2) pg MCHC (32.2-35.5) g/dL RDW (11.7-14.4) % Plt Count (182-369) x10^3/uL MPV (9.4-12.3) fL Gran % (34.0-71.1) % Immature Gran % (Auto) (0.001-0.429) % Nucleat RBC Rel Count (0.00-0.2) % Eos # (Auto) (0.04-0.36) x10^3/uL Immature Gran # (Auto) (0.001-0.031) x10^3u/L Absolute Lymphs (auto) (1.18-3.74) x10^3/uL Absolute Monos (auto) (0.24-0.86) x10^3/uL Absolute Nucleated RBC (0.00-0.012) x10^3u/L Lymphocytes % (19.3-51.7) % Monocytes % (4.7-12.5) % Eosinophils % (0.7-5.8) % Basophils % (0.1-1.2) % Absolute Granulocytes (1.56-6.13) x10^3/uL Basophils # (0.01-0.08) x10^3/uL Sodium (135-145) mmol/L Potassium (3.5-5.1) mmol/L Chloride (98-107) mmol/L Carbon Dioxide (22-30) mmol/L Anion Gap (5-15) MEQ/L BUN (7-17) mg/dL Creatinine (0.52-1.04) mg/dL Estimated GFR ML/MIN Glucose (74-106) mg/dL POC Glucometer (74 to 106) mg/dL Calcium (8.4-10.2) mg/dL Phosphorus (2.5-4.5) mg/dL Magnesium 0.8 L* (1.6-2.3) mg/dL Total Bilirubin (0.2-1.3) mg/dL AST (14-36) U/L ALT (0-35) U/L Alkaline Phosphatase (38-126) U/L Creatine Kinase (30-135) U/L Troponin I < 0.012 (0.000-0.033) ng/mL NT-Pro-B Natriuret Pep (<300) pg/mL Serum Total Protein (6.3-8.2) g/dL Albumin (3.5-5.0) g/dL Urine Color (Yellow) Urine Appearance (Clear) Urine pH (4.6-8.0) Ur Specific Mcdowell (1.005-1.030) Urine Protein (Negative) Urine Glucose (UA) (Negative) mg/dL Urine Ketones (Negative) Urine Blood (Negative) Urine Nitrite (Negative) Urine Bilirubin (Negative) Urine Urobilinogen (0.2) mg/dL Ur Leukocyte Esterase (Negative) U Hyaline Cast (Auto) (0-2) /LPF Urine Microscopic RBC (0-5) /HPF Urine Microscopic WBC (0-5) /HPF Ur Epithelial Cells (None Seen) /HPF Urine Bacteria (None Seen) /HPF Urine Culture Reflexed (NO) Urine Opiates Level POSITIVE A (NEGATIVE) Ur Methadone NEGATIVE (NEGATIVE) Urine Barbiturates NEGATIVE (NEGATIVE) Ur Phencyclidine (PCP) NEGATIVE (NEGATIVE) Urine Amphetamine NEGATIVE (NEGATIVE) U Benzodiazepine Level POSITIVE A (NEGATIVE) Urine Cocaine NEGATIVE (NEGATIVE) Urine Marijuana (THC) POSITIVE A (NEGATIVE) 07/23/25 07/23/25 07/23/25 Range/Units 14:20 17:25 17:25 WBC (3.98-10.04) x10^3/uL RBC (3.93-5.22) x10^6/uL Hgb (11.2-15.7) g/dL Hct (34.1-44.9) % MCV (79.4-94.8) fL MCH (25.6-32.2) pg MCHC (32.2-35.5) g/dL RDW (11.7-14.4) % Plt Count (182-369) x10^3/uL MPV (9.4-12.3) fL Gran % (34.0-71.1) % Immature Gran % (Auto) (0.001-0.429) % Nucleat RBC Rel Count (0.00-0.2) % Eos # (Auto) (0.04-0.36) x10^3/uL Immature Gran # (Auto) (0.001-0.031) x10^3u/L Absolute Lymphs (auto) (1.18-3.74) x10^3/uL Absolute Monos (auto) (0.24-0.86) x10^3/uL Absolute Nucleated RBC (0.00-0.012) x10^3u/L Lymphocytes % (19.3-51.7) % Monocytes % (4.7-12.5) % Eosinophils % (0.7-5.8) % Basophils % (0.1-1.2) % Absolute Granulocytes (1.56-6.13) x10^3/uL Basophils # (0.01-0.08) x10^3/uL Sodium 139 (135-145) mmol/L Potassium 3.0 L* (3.5-5.1) mmol/L Chloride 105 (98-107) mmol/L Carbon Dioxide 28 (22-30) mmol/L Anion Gap 9.3 (5-15) MEQ/L BUN 8 (7-17) mg/dL Creatinine 0.64 (0.52-1.04) mg/dL Estimated GFR 121.9 ML/MIN Glucose 81 (74-106) mg/dL POC Glucometer (74 to 106) mg/dL Calcium 7.5 L (8.4-10.2) mg/dL Phosphorus (2.5-4.5) mg/dL Magnesium (1.6-2.3) mg/dL Total Bilirubin (0.2-1.3) mg/dL AST (14-36) U/L ALT (0-35) U/L Alkaline Phosphatase (38-126) U/L Creatine Kinase 108 (30-135) U/L Troponin I < 0.012 (0.000-0.033) ng/mL NT-Pro-B Natriuret Pep (<300) pg/mL Serum Total Protein (6.3-8.2) g/dL Albumin (3.5-5.0) g/dL Urine Color (Yellow) Urine Appearance (Clear) Urine pH (4.6-8.0) Ur Specific Mcdowell (1.005-1.030) Urine Protein (Negative) Urine Glucose (UA) (Negative) mg/dL Urine Ketones (Negative) Urine Blood (Negative) Urine Nitrite (Negative) Urine Bilirubin (Negative) Urine Urobilinogen (0.2) mg/dL Ur Leukocyte Esterase (Negative) U Hyaline Cast (Auto) (0-2) /LPF Urine Microscopic RBC (0-5) /HPF Urine Microscopic WBC (0-5) /HPF Ur Epithelial Cells (None Seen) /HPF Urine Bacteria (None Seen) /HPF Urine Culture Reflexed (NO) Urine Opiates Level (NEGATIVE) Ur Methadone (NEGATIVE) Urine Barbiturates (NEGATIVE) Ur Phencyclidine (PCP) (NEGATIVE) Urine Amphetamine (NEGATIVE) U Benzodiazepine Level (NEGATIVE) Urine Cocaine (NEGATIVE) Urine Marijuana (THC) (NEGATIVE) 09/19/25 09/20/25 09/20/25 Range/Units 17:25 05:39 05:39 WBC 4.7 (3.98-10.04) x10^3/uL RBC 2.95 L (3.93-5.22) x10^6/uL Hgb 10.3 L (11.2-15.7) g/dL Hct 30.7 L (34.1-44.9) % MCV 104.1 H (79.4-94.8) fL MCH 34.9 H (25.6-32.2) pg MCHC 33.6 (32.2-35.5) g/dL RDW (11.7-14.4) % Plt Count 220 (182-369) x10^3/uL MPV 9.9 (9.4-12.3) fL Gran % (34.0-71.1) % Immature Gran % (Auto) Pending (0.001-0.429) % Nucleat RBC Rel Count Pending (0.00-0.2) % Eos # (Auto) 0.08 (0.04-0.36) x10^3/uL Immature Gran # (Auto) 0.01 (0.001-0.031) x10^3u/L Absolute Lymphs (auto) 1.51 (1.18-3.74) x10^3/uL Absolute Monos (auto) 0.56 (0.24-0.86) x10^3/uL Absolute Nucleated RBC Pending (0.00-0.012) x10^3u/L Lymphocytes % (19.3-51.7) % Monocytes % Pending (4.7-12.5) % Eosinophils % Pending (0.7-5.8) % Basophils % Pending (0.1-1.2) % Absolute Granulocytes 2.46 (1.56-6.13) x10^3/uL Basophils # 0.9 H (0.01-0.08) x10^3/uL Sodium 137 (135-145) mmol/L Potassium 3.3 L (3.5-5.1) mmol/L Chloride 105 (98-107) mmol/L Carbon Dioxide 26 (22-30) mmol/L Anion Gap 9.6 (5-15) MEQ/L BUN 6 L (7-17) mg/dL Creatinine 0.64 (0.52-1.04) mg/dL Estimated GFR 121.9 ML/MIN Glucose 86 (74-106) mg/dL POC Glucometer (74 to 106) mg/dL Calcium 7.4 L (8.4-10.2) mg/dL Phosphorus 3.5 (2.5-4.5) mg/dL Magnesium 2.0 1.4 L (1.6-2.3) mg/dL Total Bilirubin 1.50 H (0.2-1.3) mg/dL AST 69 H (14-36) U/L ALT 26 (0-35) U/L Alkaline Phosphatase 72 (38-126) U/L Creatine Kinase (30-135) U/L Troponin I (0.000-0.033) ng/mL NT-Pro-B Natriuret Pep 1020 (<300) pg/mL Serum Total Protein 6.0 L (6.3-8.2) g/dL Albumin 3.5 (3.5-5.0) g/dL Urine Color (Yellow) Urine Appearance (Clear) Urine pH (4.6-8.0) Ur Specific Mcdowell (1.005-1.030) Urine Protein (Negative) Urine Glucose (UA) (Negative) mg/dL Urine Ketones (Negative) Urine Blood (Negative) Urine Nitrite (Negative) Urine Bilirubin (Negative) Urine Urobilinogen (0.2) mg/dL Ur Leukocyte Esterase (Negative) U Hyaline Cast (Auto) (0-2) /LPF Urine Microscopic RBC (0-5) /HPF Urine Microscopic WBC (0-5) /HPF Ur Epithelial Cells (None Seen) /HPF Urine Bacteria (None Seen) /HPF Urine Culture Reflexed (NO) Urine Opiates Level (NEGATIVE) Ur Methadone (NEGATIVE) Urine Barbiturates (NEGATIVE) Ur Phencyclidine (PCP) (NEGATIVE) Urine Amphetamine (NEGATIVE) U Benzodiazepine Level (NEGATIVE) Urine Cocaine (NEGATIVE) Urine Marijuana (THC) (NEGATIVE) 07/24/25 Range/Units 07:28 WBC (3.98-10.04) x10^3/uL RBC (3.93-5.22) x10^6/uL Hgb (11.2-15.7) g/dL Hct (34.1-44.9) % MCV (79.4-94.8) fL MCH (25.6-32.2) pg MCHC (32.2-35.5) g/dL RDW (11.7-14.4) % Plt Count (182-369) x10^3/uL MPV (9.4-12.3) fL Gran % (34.0-71.1) % Immature Gran % (Auto) (0.001-0.429) % Nucleat RBC Rel Count (0.00-0.2) % Eos # (Auto) (0.04-0.36) x10^3/uL Immature Gran # (Auto) (0.001-0.031) x10^3u/L Absolute Lymphs (auto) (1.18-3.74) x10^3/uL Absolute Monos (auto) (0.24-0.86) x10^3/uL Absolute Nucleated RBC (0.00-0.012) x10^3u/L Lymphocytes % (19.3-51.7) % Monocytes % (4.7-12.5) % Eosinophils % (0.7-5.8) % Basophils % (0.1-1.2) % Absolute Granulocytes (1.56-6.13) x10^3/uL Basophils # (0.01-0.08) x10^3/uL Sodium (135-145) mmol/L Potassium (3.5-5.1) mmol/L Chloride (98-107) mmol/L Carbon Dioxide (22-30) mmol/L Anion Gap (5-15) MEQ/L BUN (7-17) mg/dL Creatinine (0.52-1.04) mg/dL Estimated GFR ML/MIN Glucose (74-106) mg/dL POC Glucometer 79 (74 to 106) mg/dL Calcium (8.4-10.2) mg/dL Phosphorus (2.5-4.5) mg/dL Magnesium (1.6-2.3) mg/dL Total Bilirubin (0.2-1.3) mg/dL AST (14-36) U/L ALT (0-35) U/L Alkaline Phosphatase (38-126) U/L Creatine Kinase (30-135) U/L Troponin I (0.000-0.033) ng/mL NT-Pro-B Natriuret Pep (<300) pg/mL Serum Total Protein (6.3-8.2) g/dL Albumin (3.5-5.0) g/dL Urine Color (Yellow) Urine Appearance (Clear) Urine pH (4.6-8.0) Ur Specific Mcdowell (1.005-1.030) Urine Protein (Negative) Urine Glucose (UA) (Negative) mg/dL Urine Ketones (Negative) Urine Blood (Negative) Urine Nitrite (Negative) Urine Bilirubin (Negative) Urine Urobilinogen (0.2) mg/dL Ur Leukocyte Esterase (Negative) U Hyaline Cast (Auto) (0-2) /LPF Urine Microscopic RBC (0-5) /HPF Urine Microscopic WBC (0-5) /HPF Ur Epithelial Cells (None Seen) /HPF Urine Bacteria (None Seen) /HPF Urine Culture Reflexed (NO) Urine Opiates Level (NEGATIVE) Ur Methadone (NEGATIVE) Urine Barbiturates (NEGATIVE) Ur Phencyclidine (PCP) (NEGATIVE) Urine Amphetamine (NEGATIVE) U Benzodiazepine Level (NEGATIVE) Urine Cocaine (NEGATIVE) Urine Marijuana (THC) (NEGATIVE) Radiology Exams: Radiology Procedures Category Date Time Status HEAD WITHOUT CONTRAST [CT] Stat Exams 07/23/25 13:37 Completed Medications: Medications Generic Name Dose Route Start Last Admin Trade Name Freq PRN Reason Stop Dose Admin Acetaminophen 650 mg 07/23/25 21:20 07/24/25 02:45 Acetaminophen 325 Mg Tablet PO 08/22/25 21:19 650 mg Q4H PRN PRN Administration PAIN, FEVER, HEADACHE Calcium Carbonate/Glycine 750 mg 07/24/25 10:00 Calcium Carbonate 750 Mg 750 Mg Tab.Chew PO 08/23/25 09:59 BID YUNG Diazepam 2.5 mg 07/24/25 10:00 Diazepam 5 Mg Tablet PO 08/23/25 09:59 QAM YUNG Diazepam 5 mg 07/24/25 22:00 Diazepam 5 Mg Tablet PO 08/23/25 21:59 HS YUNG Fluoxetine HCl 60 mg 07/24/25 10:00 Fluoxetine Hcl 20 Mg Cap PO 08/23/25 09:59 DAILY YUNG Sodium Chloride 500 mls @ 20 mls/hr 07/24/25 07:45 07/24/25 08:33 Sodium Chloride 0.9% 500 Ml IV 08/23/25 07:44 20 mls/hr .Q24H YUNG Administration Ketorolac Tromethamine 30 mg 07/24/25 08:56 Ketorolac Tromethamine 30 Mg/Ml Inj IV Q8H PRN PRN PAIN Losartan Potassium 100 mg 07/24/25 10:00 07/24/25 07:38 Losartan Potassium 50 Mg Tablet PO 08/23/25 09:59 100 mg DAILY YUNG Administration Metoprolol Tartrate 50 mg 07/24/25 10:00 07/24/25 08:21 Metoprolol Tartrate 50 Mg Tablet PO 08/23/25 09:59 50 mg DAILY YUNG Administration Patient Own Med: 2 each 07/24/25 10:00 Symbicort 160/4.5 IH 08/23/25 09:59 DAILY YUNG Potassium Chloride 20 meq 07/24/25 07:30 07/24/25 07:48 Potassium Chloride Tab 10 Meq Tab PO 07/24/25 13:31 20 meq Q2H YUNG Administration Discontinued Medications Generic Name Dose Route Start Last Admin Trade Name Freq PRN Reason Stop Dose Admin Calcium Gluconate 1,000 mg 07/23/25 17:27 07/23/25 17:35 Calcium Gluconate 1000 Mg/10 Ml Vial IV 07/23/25 17:28 1,000 mg STAT ONE Administration Calcium Gluconate Confirm 07/23/25 17:34 Calcium Gluconate 1000 Mg/10 Ml Vial Administered 07/23/25 17:35 Dose 1,000 mg IV .STK-MED ONE Diazepam 10 mg 07/23/25 13:39 07/23/25 13:41 Diazepam 10 Mg/2 Ml Disp.Syringe IV 07/23/25 13:40 10 mg STAT ONE Administration Diazepam Confirm 07/23/25 13:40 Diazepam 10 Mg/2 Ml Disp.Syringe Administered 07/23/25 13:41 Dose 10 mg .ROUTE .STK-MED ONE Diazepam 5 mg 07/23/25 22:00 07/23/25 23:35 Diazepam 10 Mg/2 Ml Disp.Syringe IV 08/22/25 21:59 5 mg QHS YUNG Administration Diazepam 2.5 mg 07/24/25 07:36 Diazepam 5 Mg Tablet PO 08/23/25 07:35 DAILY PRN PRN ANXIETY Droperidol 0.625 mg 07/23/25 15:57 07/23/25 16:21 Droperidol 5 Mg/2 Ml Vial IV 07/23/25 15:58 0.625 mg STAT ONE Administration Droperidol Confirm 07/23/25 16:15 Droperidol 5 Mg/2 Ml Vial Administered 07/23/25 16:16 Dose 5 mg .ROUTE .STK-MED ONE Sodium Chloride 1,000 mls @ 999 mls/hr 07/23/25 14:44 07/23/25 16:25 Sodium Chloride 0.9% 1000 Ml IV 07/23/25 15:44 Infused .Q1H1M STA Infusion Magnesium Sulfate/Water 2 gm in 50 mls @ 100 mls/hr 07/23/25 14:44 07/23/25 16:58 Magnesium Sulf 2 G/50 Ml Bag IV 07/23/25 15:13 Infused ONCE ONE Infusion Magnesium Sulfate/Water Confirm 07/23/25 14:46 Magnesium Sulf 2 G/50 Ml Bag Administered 07/23/25 14:47 Dose 2 gm in 50 mls @ ud IV .STK-MED ONE Sodium Chloride Confirm 07/23/25 14:46 Sodium Chloride 0.9% 1000 Ml Administered 07/23/25 14:47 Dose 1,000 mls @ ud .ROUTE .STK-MED ONE Magnesium Sulfate/Dextrose 100 mls @ 200 mls/hr 07/23/25 15:43 07/23/25 16:27 Magnesium 1 Gm / 100 Ml D5w IV 07/23/25 16:12 Infused STAT ONE Infusion Magnesium Sulfate/Dextrose Confirm 07/23/25 15:51 Magnesium 1 Gm / 100 Ml D5w Administered 07/23/25 15:52 Dose 100 mls @ ud IV .STK-MED ONE Sodium Chloride Confirm 07/23/25 16:09 Sodium Chloride 0.9% 500 Ml Administered 07/23/25 16:10 Dose 500 mls @ ud IV .STK-MED ONE Sodium Chloride 500 mls @ 500 mls/hr 07/23/25 17:03 07/23/25 18:07 Sodium Chloride 0.9% 500 Ml IV 07/23/25 18:02 Infused .Q1H ONE Infusion Sodium Chloride Confirm 07/23/25 17:07 Sodium Chloride 0.9% 500 Ml Administered 07/23/25 17:08 Dose 500 mls @ ud IV .STK-MED ONE Potassium Chloride 20 meq in 100 mls @ 50 mls/hr 07/23/25 19:00 07/23/25 19:33 Potassium Chloride 20 Meq In Water 100ml IV 07/23/25 20:59 50 mls/hr STAT ONE Administration Sodium Chloride 1,000 mls @ 500 mls/hr 07/23/25 19:30 07/23/25 19:33 Sodium Chloride 0.9% 1000 Ml IV 08/22/25 19:29 500 mls/hr .Q2H YUNG Administration Potassium Chloride Confirm 07/23/25 19:23 Potassium Chloride 20 Meq In Water 100ml Administered 07/23/25 19:24 Dose 100 mls @ ud IV .STK-MED ONE Sodium Chloride Confirm 07/23/25 19:23 Sodium Chloride 0.9% 1000 Ml Administered 07/23/25 19:24 Dose 1,000 mls @ ud .ROUTE .STK-MED ONE Sodium Chloride 1,000 mls @ 75 mls/hr 07/23/25 21:20 Sodium Chloride 0.9% 1000 Ml IV 08/22/25 21:19 .[id number] YUNG Magnesium Sulfate/Water 2 gm in 50 mls @ 100 mls/hr 07/24/25 07:27 07/24/25 07:39 Magnesium Sulf 2 G/50 Ml Bag IV 07/24/25 07:56 100 mls/hr ONCE ONE Administration Sodium Chloride Confirm 07/24/25 07:46 Sodium Chloride 0.9% 500 Ml Administered 07/24/25 07:47 Dose 500 mls @ ud IV .STK-MED ONE Ibuprofen Confirm 07/24/25 05:32 Ibuprofen 400 Mg Tablet Administered 07/24/25 05:33 Dose 800 mg .ROUTE .STK-MED ONE Ibuprofen 800 mg 07/24/25 05:30 07/24/25 05:30 Ibuprofen 400 Mg Tablet PO 07/24/25 05:31 800 mg STAT ONE Administration Lorazepam 1 mg 07/23/25 15:57 07/23/25 16:20 Lorazepam 2 Mg/1 Ml 2 Mg Vial IV 07/23/25 15:58 1 mg STAT ONE Administration Morphine Sulfate 4 mg 07/23/25 13:49 07/23/25 13:54 Morphine Sulfate 4 Mg/Ml Injection IV 07/23/25 13:50 4 mg STAT ONE Administration Morphine Sulfate Confirm 07/23/25 13:52 Morphine Sulfate 4 Mg/Ml Injection Administered 07/23/25 13:53 Dose 4 mg .ROUTE .STK-MED ONE Morphine Sulfate 4 mg 07/23/25 20:09 07/23/25 20:26 Morphine Sulfate 4 Mg/Ml Injection IV 07/23/25 20:10 4 mg STAT ONE Administration Morphine Sulfate Confirm 07/23/25 20:25 Morphine Sulfate 4 Mg/Ml Injection Administered 07/23/25 20:26 Dose 4 mg .ROUTE .STK-MED ONE Ondansetron HCl 4 mg 07/23/25 13:49 07/23/25 13:54 Ondansetron Hcl 4 Mg/2 Ml Vial IV 07/23/25 13:50 4 mg STAT ONE Administration Ondansetron HCl Confirm 07/23/25 13:52 Ondansetron Hcl 4 Mg/2 Ml Vial Administered 07/23/25 13:53 Dose 4 mg .ROUTE .STK-MED ONE Potassium Chloride 20 meq 07/23/25 17:28 07/23/25 17:35 Potassium Chloride Tab 10 Meq Tab PO 07/23/25 17:29 20 meq STAT ONE Administration Potassium Chloride Confirm 07/23/25 17:34 Potassium Chloride Tab 10 Meq Tab Administered 07/23/25 17:35 Dose 20 meq .ROUTE .STK-MED ONE Assessment/Plan (1) Hypomagnesemia Current Visit: Yes Status: Acute Assessment & Plan: -Presented with severe bilateral muscle spasms, improved with IV magnesium. -IV magnesium given to correct to target>2.0 mg/dL. -CMP and mag levels reviewed- mag at 1.4and will be replenished -Serial EKG monitoring: remains NSR, no QT prolongation. -No clear iatrogenic cause identified; possible cannabis-associated electrolyte disturbance. -Continue oral magnesium oxide 250 mg daily at discharge, titrate based on repeat BMP in 2 weeks. -Repeat CMP and serum magnesium ordered in AM. -Outpatient PCP follow-up for monitoring and dose adjustment. -Pain control treated with ibuprofen/acetaminophin - continue with Toradol 30mg q8h x 5 doses -Avoid further opioids given positive tox screen and daily diazepam -hold protonix -Check b12 level Code(s): E83.42 - HYPOMAGNESEMIA (2) Hypocalcemia Current Visit: Yes Status: Acute Assessment & Plan: -Likely secondary to concurrent hypomagnesemia (Mg 1.4) and hypokalemia (K 3.3). -No symptoms of tetany, paresthesias, or seizures currently reported. -Replete magnesium first to facilitate calcium correction (IV magnesium as ordered). -Administer IV calcium gluconate for Ca <7.5 with symptoms or <7.0 regardless of symptoms; - IV calcium gluconate 1g in -Monitor for arrhythmias with telemetry during IV replacement. -Check PTH and ionized calcium, vitamin D and TSH. -Transition to oral calcium carbonate once stable. -Outpatient follow-up: repeat BMP within 12 weeks, monitor for recurrence. - Code(s): E83.51 - HYPOCALCEMIA (3) Hypokalemia Current Visit: Yes Status: Acute Assessment & Plan: -Likely worsened by hypomagnesemia. -Potassium at 3.3- replenish per protocol -Plaster [employer] on diet with potassium-rich foods. -Tele Code(s): E87.6 - HYPOKALEMIA (4) History of seizure Current Visit: Yes Status: Acute Assessment & Plan: Current event not consistent with seizure (no LOC, no postictal state). Patient on diazepam. Continue current regimen. Neurology referral if recurrent episodes occur or if atypical features recur. Code(s): Z87.898 - PERSONAL HISTORY OF OTHER SPECIFIED CONDITIONS (5) Asthma Current Visit: Yes Status: Acute Assessment & Plan: On budesonide-formoterol inhaler BID. No acute exacerbation. Continue home inhaler regimen. Reinforce adherence and avoidance of triggers. Code(s): J45.909 - UNSPECIFIED ASTHMA, UNCOMPLICATED (6) Anxiety Current Visit: Yes Status: Acute Assessment & Plan: On duloxetine 60 mg daily. Denied recent triggering events. Continue home regimen. PCP follow-up for ongoing management. VTE: SCD Dispo: tomorrow Code Status: Full code Plan of care time spent > 30mins Code(s): F41.9 - ANXIETY DISORDER, UNSPECIFIED
[2025-07-24] MEDS: Valium 5 MG PO SCH (09:44)
[2025-07-24] MEDS: Prozac 20 MG PO SCH (09:45)
[2025-07-24] MEDS: Calcium Gluconate 10% 1000 MG 1,000 MG in Sodium Chloride 0.9% 100 ML IV ONE (09:50)
[2025-07-24] MEDS: TORAdol 30 mg Injection IV PRN (09:51)
[2025-07-24] MEDS: PATIENT OWN MEDICATION IH SCH (09:59)
[2025-07-24] MEDS ORDERED: FLUOXETINE HCL 60 MG PO SCH (10:00)
[2025-07-24] MEDS ORDERED: Tums EX 750 MG PO SCH (10:00)
[2025-07-24] MEDS ORDERED: NON-FORMULARY ITEM (Budesonide/Formoterol Fumarate [Budesonide-Formoterol 160-4.5] 10.2 GM IH SCH (10:00)
[2025-07-24] MEDS: PROVENTIL 2.5 MG/3 ML NEB IH PRN (11:21)
[2025-07-24] MEDS: ZOFRAN ODT 4 MG PO PRN (14:04)
[2025-07-24 15:00] LABS: BASOPHIL % 0.9 % (0.1-1.2); Basophil (Absolute #) 0.04 x10^3/uL (0.01-0.08); IMMATURE GRAN % 0.2 % (0.001-0.429); NUCLEATED RBC # 0.00 x10^3u/L (0.00-0.012); NUCLEATED RBC % 0.0 % (0.00-0.2)
[2025-07-24] MEDS ORDERED: PHENERGAN 25 MG PO PRN (15:01)
[2025-07-24] MEDS ORDERED: Zofran 4 MG/2 ML VIAL IV PRN (15:30)
[2025-07-24] MEDS: Ativan 2 MG/1 ML VIAL IV PRN ×2 (16:00→21:13)
[2025-07-24] MEDS: MELATONIN PO PRN (21:07)
[2025-07-24] MEDS: ATIVAN 2 MG/ML MDV FOR SINGLE DOSES IV PRN (21:19)
[2025-07-24] MEDS ORDERED: Valium 5 MG PO SCH (22:00)
[2025-07-25 05:59] LABS: Hematocrit 28.6 % (34.1-44.9); Hemoglobin 9.3 g/dL (11.2-15.7); Mean Corpuscular Hemoglobin 34.4 pg (25.6-32.2); Mean Corpuscular Hgb Concent. 32.5 g/dL (32.2-35.5); Platelet Count 235 x10^3/uL (182-369); Red Blood Count 2.70 x10^6/uL (3.93-5.22); White Blood Count 5.0 x10^3/uL (3.98-10.04)
[2025-07-25 06:18] LABS: Calcium 7.9 mg/dL (8.4-10.2); Carbon Dioxide 24.0 mmol/L (22-30); Creatinine 1 0.61 mg/dL (0.52-1.04); EST GLOMERULAR FILTRATION RATE 123.3 ML/MIN; Glucose 92.0 mg/dL (74-106); Potassium 3.8 mmol/L (3.5-5.1)
[2025-07-25 06:59] VITALS: O2SAT 99
[2025-07-25 07:53] LABS: SGOT/AST 72.0 U/L (14-36); SGPT/ALT 25.0 U/L (0-35); Total Protein 5.7 g/dL (6.3-8.2)
[2025-07-25] MEDS: MAGNESIUM SULF 2 G/50 ML BAG 2 GM/50 ML PIGGYBACK IV ONE (09:01)
[2025-07-25] MEDS: ATIVAN 2 MG/ML MDV FOR SINGLE DOSES IV PRN (09:13)
[2025-07-25] MEDS: FOLATE 1 MG PO SCH (09:16)
[2025-07-25] MEDS: MAG-OX 400 PO SCH (09:17)
[2025-07-25] MEDS: Vitamin B-12 500 MCG PO SCH (09:17)
[2025-07-25] MEDS: Tums EX 750 MG PO SCH (09:18)
[2025-07-25] MEDS: THERAGRAN MULTIVITAMIN PO SCH (09:19)
[2025-07-25] MEDS: Klor Con PO SCH (09:19)
[2025-07-25] MEDS: VITAMIN B-1 100 MG PO SCH (09:19)
[2025-07-25] MEDS ORDERED: THERAGRAN MULTIVITAMIN PO SCH (10:00)
[2025-07-25] MEDS ORDERED: VITAMIN B-1 100 MG PO SCH (10:00)
[2025-07-25] MEDS ORDERED: FOLATE 1 MG PO SCH (10:00)
[2025-07-25] MEDS: Calcium Gluconate 10% 1000 MG 1,000 MG in Sodium Chloride 0.9% 100 ML IV ONE (10:11)
--- NOTE | 2025-07-25 11:37 | PCM.DS ---
Discharge Summary Date of Admission: 07/23/25 21:10 Date of Discharge: 07/25/25 Admitting Physician: OFELIA ADAM MD Primary Care Provider: NO FAMILY DOCTOR Allergies Allergies Latex, Natural Rubber Allergy (Verified 07/23/25 13:36) Sulfa (Sulfonamide Antibiotics) Allergy (Verified 07/23/25 13:36) Hospital Summary - Hospital Course Hospital Course: Ms. Solares is a 30-year-old woman with a past medical history of hypertension, asthma, seizure disorder, and anxiety who presented to the emergency department via EMS with new-onset generalized muscle spasms, right arm posturing, and inability to extend the right elbow. She denied loss of consciousness, trauma, or prior similar episodes. On arrival, she was alert and hemodynamically stable. Neurologic exam was nonfocal aside from limited elbow extension. Labs were notable for severe hypomagnesemia (Mg 0.8), hypokalemia (K 3.0), and mild anemia (Hgb 11). Urine toxicology was positive for benzodiazepines, opioids, and marijuana. EKG showed normal sinus rhythm without QT prolongation. Symptoms improved with IV magnesium repletion. Over the hospitalization, she disclosed a history of chronic alcohol use, drinking approximately one pint every other day. She previously attended rehab in April but relapsed earlier this month. She declined inpatient rehabilitation at this time but was provided with resources for Alcoholics Anonymous and outpatient community programs. She demonstrated no further signs of alcohol withdrawal, and CIWA protocol was discontinued prior to discharge. Electrolyte derangements were gradually corrected with IV replacement, and she is now stable on oral supplementation. Her blood pressure remained controlled on home antihypertensives, and her asthma regimen was continued without acute exacerbation. Anxiety was managed on home duloxetine. Diazepam was continued as prescribed outpatient, though she was strongly advised to discontinue its use if alcohol consumption continues, given the risks of respiratory depression and sedation. She was counseled extensively on relapse prevention, risks of concurrent alcohol and benzodiazepine use, and adherence to follow-up. At the time of discharge, she is clinically stable, electrolytes have been replenished, and she is agreeable to the discharge plan. She will leave with prescriptions for a multivitamin, thiamine, folic acid, vitamin B12, magnesium, and potassium. I spent 35 minutes [id number] with the patient on the day of discharge performing discharge exam, discussing hospital stay and discharge instructions with patient and caregivers, preparation of discharge records, prescriptions & referral forms and addressing any questions/concerns the patient had as documented above. - Vitals & Intake/Output Vital Signs: Vital Signs Temperature 97.8 F 07/25/25 07:07 Pulse Rate 58 L 07/25/25 07:07 Respiratory Rate 16 07/25/25 07:07 Blood Pressure 130/73 07/25/25 07:07 O2 Sat by Pulse Oximetry 99 07/25/25 07:07 Intake & Output: Intake & Output 07/22/25 07/23/25 07/24/25 07/25/25 11:59 11:59 11:59 11:59 Intake Total 120 1760 Balance 120 1760 Weight 109.2 kg - Lab Result Diagrams: 07/25/25 05:32 07/25/25 05:32 Lab Results-Last 24 Hrs: Lab Results-Last 24 Hours 07/24/25 07/24/25 07/24/25 Range/Units 05:39 05:39 13:35 WBC (3.98-10.04) x10^3/uL RBC (3.93-5.22) x10^6/uL Hgb (11.2-15.7) g/dL Hct (34.1-44.9) % MCV (79.4-94.8) fL MCH (25.6-32.2) pg MCHC (32.2-35.5) g/dL RDW 17.4 H (11.7-14.4) % Plt Count (182-369) x10^3/uL MPV (9.4-12.3) fL Gran % 52.8 (34.0-71.1) % Immature Gran % (Auto) 0.2 (0.001-0.429) % Nucleat RBC Rel Count 0.0 (0.00-0.2) % Absolute Nucleated RBC 0.00 (0.00-0.012) x10^3u/L Lymphocytes % 32.4 (19.3-51.7) % Monocytes % 12.0 (4.7-12.5) % Eosinophils % 1.7 (0.7-5.8) % Basophils % 0.9 (0.1-1.2) % Basophils # 0.04 (0.01-0.08) x10^3/uL Sodium (135-145) mmol/L Potassium 4.1 D (3.5-5.1) mmol/L Chloride (98-107) mmol/L Carbon Dioxide (22-30) mmol/L Anion Gap (5-15) MEQ/L BUN (7-17) mg/dL Creatinine (0.52-1.04) mg/dL Estimated GFR ML/MIN Glucose (74-106) mg/dL Calcium (8.4-10.2) mg/dL Phosphorus (2.5-4.5) mg/dL Magnesium (1.6-2.3) mg/dL Total Bilirubin (0.2-1.3) mg/dL Direct Bilirubin (0.0-0.4) mg/dL AST (14-36) U/L ALT (0-35) U/L Alkaline Phosphatase (38-126) U/L Serum Total Protein (6.3-8.2) g/dL Albumin (3.5-5.0) g/dL Vitamin B12 217 L (239-931) pg/mL Folic Acid 3.44 (2.76 - >20) ng/mL Ethyl Alcohol (0-10) mg/dL 07/24/25 07/24/25 07/25/25 Range/Units 17:20 17:20 05:32 WBC 5.0 (3.98-10.04) x10^3/uL RBC 2.70 L (3.93-5.22) x10^6/uL Hgb 9.3 L (11.2-15.7) g/dL Hct 28.6 L (34.1-44.9) % MCV 105.9 H (79.4-94.8) fL MCH 34.4 H (25.6-32.2) pg MCHC 32.5 (32.2-35.5) g/dL RDW 17.1 H (11.7-14.4) % Plt Count 235 (182-369) x10^3/uL MPV 10.8 (9.4-12.3) fL Gran % (34.0-71.1) % Immature Gran % (Auto) (0.001-0.429) % Nucleat RBC Rel Count (0.00-0.2) % Absolute Nucleated RBC (0.00-0.012) x10^3u/L Lymphocytes % (19.3-51.7) % Monocytes % (4.7-12.5) % Eosinophils % (0.7-5.8) % Basophils % (0.1-1.2) % Basophils # (0.01-0.08) x10^3/uL Sodium (135-145) mmol/L Potassium 4.0 (3.5-5.1) mmol/L Chloride (98-107) mmol/L Carbon Dioxide (22-30) mmol/L Anion Gap (5-15) MEQ/L BUN (7-17) mg/dL Creatinine (0.52-1.04) mg/dL Estimated GFR ML/MIN Glucose (74-106) mg/dL Calcium (8.4-10.2) mg/dL Phosphorus (2.5-4.5) mg/dL Magnesium (1.6-2.3) mg/dL Total Bilirubin (0.2-1.3) mg/dL Direct Bilirubin (0.0-0.4) mg/dL AST (14-36) U/L ALT (0-35) U/L Alkaline Phosphatase (38-126) U/L Serum Total Protein (6.3-8.2) g/dL Albumin (3.5-5.0) g/dL Vitamin B12 (239-931) pg/mL Folic Acid (2.76 - >20) ng/mL Ethyl Alcohol < 10 (0-10) mg/dL 07/25/25 07/25/25 07/25/25 Range/Units 05:32 05:32 07:46 WBC (3.98-10.04) x10^3/uL RBC (3.93-5.22) x10^6/uL Hgb (11.2-15.7) g/dL Hct (34.1-44.9) % MCV (79.4-94.8) fL MCH (25.6-32.2) pg MCHC (32.2-35.5) g/dL RDW (11.7-14.4) % Plt Count (182-369) x10^3/uL MPV (9.4-12.3) fL Gran % (34.0-71.1) % Immature Gran % (Auto) (0.001-0.429) % Nucleat RBC Rel Count (0.00-0.2) % Absolute Nucleated RBC (0.00-0.012) x10^3u/L Lymphocytes % (19.3-51.7) % Monocytes % (4.7-12.5) % Eosinophils % (0.7-5.8) % Basophils % (0.1-1.2) % Basophils # (0.01-0.08) x10^3/uL Sodium 138 (135-145) mmol/L Potassium 3.8 (3.5-5.1) mmol/L Chloride 109 H (98-107) mmol/L Carbon Dioxide 24 (22-30) mmol/L Anion Gap 9.2 (5-15) MEQ/L BUN 7 (7-17) mg/dL Creatinine 0.61 (0.52-1.04) mg/dL Estimated GFR 123.3 ML/MIN Glucose 92 (74-106) mg/dL Calcium 7.9 L (8.4-10.2) mg/dL Phosphorus 3.8 (2.5-4.5) mg/dL Magnesium 1.5 L (1.6-2.3) mg/dL Total Bilirubin 0.70 (0.2-1.3) mg/dL Direct Bilirubin 0.1 (0.0-0.4) mg/dL AST 72 H (14-36) U/L ALT 25 (0-35) U/L Alkaline Phosphatase 61 (38-126) U/L Serum Total Protein 5.7 L (6.3-8.2) g/dL Albumin 3.3 L 3.3 L (3.5-5.0) g/dL Vitamin B12 (239-931) pg/mL Folic Acid (2.76 - >20) ng/mL Ethyl Alcohol (0-10) mg/dL Micro Results-Entire Visit: Microbiology 07/23/25 13:37 Urine Culture - Final Catherized NO GROWTH Accuchecks Date 07/25/25 Time 08:19 - Radiology Exams Ordered Rad Exams-Entire Visit: Radiology Procedures Category Date Time Status HEAD WITHOUT CONTRAST [CT] Stat Exams 07/23/25 13:37 Completed - Procedures and Test Procedures and Tests throughout Hospitalization: Therapy Orders & Screens 07/23/25 21:20 EKG REPEAT IN AM Comment: 07/24/25 05:02 EKG PRN Comment: Diagnosis: hypomagnesemia, hypocalcemia, hypokalemia 07/24/25 07:00 EKG ROUTINE Comment: Diagnosis: hypomagnesemia, hypocalcemia, hypokalemia 07/24/25 11:01 Respiratory Therapy Assessment DAILY Comment: Diagnosis: hypomagnesemia, hypocalcemia, hypokalemia 07/24/25 11:29 Respiratory MDI BID Comment: Diagnosis: hypomagnesemia, hypocalcemia, hypokalemia 07/24/25 14:12 EKG REPEAT IN AM Comment: Diagnosis: hypomagnesemia, hypocalcemia, hypokalemia Discharge Exam General Appearance: no apparent distress Neurologic Exam: alert, oriented x 3, cooperative Eye Exam: PERRL Ears, Nose, Throat Exam: normal ENT inspection Neck Exam: normal inspection Respiratory Exam: normal breath sounds, lungs clear Cardiovascular Exam: regular rate/rhythm, normal heart sounds Gastrointestinal/Abdomen Exam: soft, normal bowel sounds Pelvic Exam: deferred Rectal Exam: deferred Back Exam: normal inspection Extremity Exam: normal inspection Skin Exam: normal color Final Diagnosis/Problem List - Final Discharge Diagnosis/Problem (1) Hypomagnesemia Current Visit: Yes Status: Acute Assessment & Plan: Improved with IV magnesium; discharged on magnesium oxide 250 mg daily. Outpatient BMP and magnesium level in 12 weeks; PCP to titrate dose as needed. Serial EKGs remained stable without arrhythmia. Code(s): E83.42 - HYPOMAGNESEMIA (2) Hypocalcemia Current Visit: Yes Status: Acute Assessment & Plan: Likely secondary to hypomagnesemia and hypokalemia. Corrected with magnesium repletion and supportive therapy. Outpatient calcium monitoring; repeat BMP in 12 weeks. Code(s): E83.51 - HYPOCALCEMIA (3) Hypokalemia Current Visit: Yes Status: Acute Assessment & Plan: Corrected during admission with IV and oral potassium. Discharge on oral potassium supplementation and high-potassium diet. Outpatient electrolyte monitoring with PCP. Code(s): E87.6 - HYPOKALEMIA (4) History of seizure Current Visit: Yes Status: Acute Assessment & Plan: Current episode not consistent with seizure; no loss of consciousness or postictal state. Neurology referral recommended if recurrent abnormal movements occur Code(s): Z87.898 - PERSONAL HISTORY OF OTHER SPECIFIED CONDITIONS (5) Asthma Current Visit: Yes Status: Acute Assessment & Plan: Continued home budesonideformoterol inhaler. No acute exacerbation during admission. Code(s): J45.909 - UNSPECIFIED ASTHMA, UNCOMPLICATED (6) Anxiety Current Visit: Yes Status: Acute Assessment & Plan: Continued duloxetine 60 mg daily. Diazepam continued as prescribed outpatient; advised to discontinue if alcohol use persists due to dangerous interaction. No acute exacerbation; outpatient management recommended. Code(s): F41.9 - ANXIETY DISORDER, UNSPECIFIED (7) HTN (hypertension) Current Visit: Yes Status: Acute Assessment & Plan: Blood pressure intermittently elevated but improved on home regimen. Continue losartan and metoprolol. PCP follow-up for ongoing control. Code(s): I10 - ESSENTIAL (PRIMARY) HYPERTENSION (8) Alcohol abuse Current Visit: Yes Status: Acute Assessment & Plan: Drinks 1 pint liquor every other day; relapse occurred in early July after prior rehab in April. Declined inpatient rehabilitation; provided AA and outpatient community resources. Extensive counseling on relapse prevention and long-term health risks. Discharged with thiamine, folic acid, vitamin B12, multivitamin, magnesium, and potassium. Code(s): F10.10 - ALCOHOL ABUSE, UNCOMPLICATED - Discharge Discharge Date: 07/25/25 Disposition: Home, Self-Care Condition: Stable Prescriptions: New Folic Acid 1 mg [Folate 1 mg] 1 mg PO DAILY 30 Days #30 tablet Potassium Chloride Tab* [Klor Con] 20 meq PO DAILY 3 Days #3 tablet Magnesium Oxide 250 mg PO DAILY 14 Days #14 tablet Multivitamins,Therapeutic Tab* [Theragran Multivitamin] 1 tab PO QAM 30 Days #30 tab Thiamine HCl 100 mg [Vitamin B-1 100 mg] 100 mg PO DAILY 30 Days #30 tablet Cyanocobalamin 500 Mcg [Vitamin B-12 500 MCG] 1,000 mcg PO DAILY 30 Days #30 tablet Continue Losartan Potassium 50 mg [Cozaar 50 MG] 100 mg PO DAILY Fluoxetine HCl 60 mg PO DAILY PANTOPRAZOLE 40 mg Tablet [Protonix 40MG Tablet] 40 mg PO DAILY Diazepam [Valium] 2 mg PO DAILY PRN PRN Reason: Anxiety Budesonide/Formoterol Fumarate [Budesonide-Formoterol 160-4.5] 2 puff IH DAILY Metoprolol Tartrate 1 tab PO DAILY Diazepam 5 mg [Valium 5 MG] 5 mg PO DAILY Additional Instructions: Contact your PCP for follow up in within one week - you will need labs Follow up with: DOCTOR,NO FAMILY [Primary Care Provider, UNKNOWN]
[2025-07-25 11:45] VITALS: BP 134/88; PULSE 60; RESP 17; TEMP 97.1
[2025-07-25] MEDS: Valium 5 MG PO ONE (13:40)
== END 2025-07-25 13:54 | disposition home or self-care (01) ==
LOC: ED 13:28 → MED SURG 21:10
PROVIDERS: ADMIT Internal Medicine; ATTEND Internal Medicine
DX: E83.42 Hypomagnesemia (principal); E83.51 Hypocalcemia; E87.6 Hypokalemia; Z87.898 Personal history of other specified conditions; J45.909 Unspecified asthma, uncomplicated; F41.9 Anxiety disorder, unspecified; I10 Essential (primary) hypertension; F10.10 Alcohol abuse, uncomplicated; Z79.899 Other long term (current) drug therapy
CPT/HCPCS: 36415; 70450; 80048; 80053; 80076; 80307; 81001; 82040; 82077; 82306; 82330; 82550; 82607; 82746; 82947; 83735; 83880; 83970; 84100; 84132; 84484; 85025; 85027; 87086; 93005; 93041; 93268; 94640; 94760; 96360; 96365; 96374; 96375; 96376; 99291; G0378; Q3014